=== PATIENT | male | born 1960 | race Caucasian/White ===

== ENCOUNTER 2016-09-13 07:15 | Emergency (ER) | payer OTHER ==
--- NOTE | 2016-09-13 08:01 | XR ---
EXAMINATION TYPE: XR ankle complete LT DATE OF EXAM: 09/13/2016 7:54 AM CLINICAL HISTORY: Injury with pain TECHNIQUE: Frontal, lateral and oblique images of the left ankle are obtained. COMPARISON: None. FINDINGS: There is no acute fracture/dislocation evident in the left ankle. The ankle mortise appea rs within normal limits. The overlying soft tissue appears unremarkable. IMPRESSION: There is no acute fracture or dislocation in the left ankle.
--- NOTE | 2016-09-13 08:38 | XR ---
EXAMINATION TYPE: XR foot complete LT DATE OF EXAM: 09/13/2016 8:31 AM CLINICAL HISTORY: Left lateral foot pain after hockey injury. TECHNIQUE: Frontal, lateral, and oblique images of the left foot are obtained. COMPARISON: None FINDINGS: There is no acute fracture/dislocation evident in the left foot. There is mild spurring an d joint space loss first metatarsophalangeal joint. The overlying soft tissue appears unremarkable. IMPRESSION: There is no acute fracture or dislocation in the left foot.
--- NOTE | 2016-09-13 08:57 | ED ---
General Adult HPI - General Chief complaint: Extremity Injury, Lower Stated complaint: left ankle injury Time Seen by Provider: 09/13/16 08:11 Source: patient, RN notes reviewed Mode of arrival: wheelchair Limitations: no limitations - History of Present Illness Initial comments: Patient is a 56-year-old male who presents emergency room today with a chief complaint of an injury to the left foot that occurred yesterday while playing hockey. He states he took a hockey put to the inside of the left foot. He does admit to point tenderness over the medial aspect of the left foot. States hurts with dorsiflexion. He denies any other complaints or associated symptoms. Patient denies any recent fever, chills, shortness of breath, chest pain, back pain, abdominal pain, nausea or vomiting, numbness or tingling, dysuria or hematuria, constipation or diarrhea, headaches or visual changes, or any other complaints. - Related Data Previous Rx's Medication Instructions Recorded Ibuprofen [Motrin] 600 mg PO Q6HR PRN #20 day 09/13/16 Allergies Allergy/AdvReac Type Severity Reaction Status Date / Time venom-honey bee Allergy Rash/Hives Verified 09/13/16 07:28 [bee venom (honey bee)] Review of Systems ROS Statement: Those systems with pertinent positive or pertinent negative responses have been documented in the HPI. ROS Other: All systems not noted in ROS Statement are negative. Past Medical History Past Medical History: No Reported History History of Any Multi-Drug Resistant Organisms: None Reported Past Surgical History: Orthopedic Surgery Additional Past Surgical History / Comment(s): RT ACL REPAIR. COLONOSCOPY Past Anesthesia/Blood Transfusion Reactions: No Reported Reaction Past Psychological History: No Psychological Hx Reported Smoking Status: Never smoker Past Alcohol Use History: Occasional Past Drug Use History: None Reported - Past Family History Father Family Medical History: AFIB, AICD/Pacemaker Additional Family Medical History / Comment(s): got pacemaker at about age 81. Mother Family Medical History: Diabetes Mellitus Additional Family Medical History / Comment(s): Type 2 Diabetes General Exam - General Exam Comments Initial Comments: General: The patient is awake and alert, in no distress, and does not appear acutely ill. Neck: The neck is supple, there is no tenderness or JVD. Cardiovascular: There is a regular rate and rhythm. No murmur, rub or gallop is appreciated. Respiratory: Lungs are clear to auscultation, respirations are non-labored, breath sounds are equal. No wheezes, stridor, rales, or rhonchi. Musculoskeletal: Patient has normal appearance of left foot mild swelling. Shows good range of motion with plantar and dorsiflexion. Sensations are intact pulses equal bilaterally 2+. Strength is 5/5. No tenderness over the lateral medial malleolus. No tenderness to left knee. No tenderness down into the metatarsals. Patient mildly tender mid foot on the medial aspect. Neurological: A&O x 3. CN II-XII intact, There are no obvious motor or sensory deficits. Coordination appears grossly intact. Speech is normal. Skin: Skin is warm and dry and no rashes or lesions are noted. Psychiatric: Normal mood and affect. Limitations: no limitations Course Vital Signs 09/13/16 07:23 Temperature 98.0 F Pulse Rate 90 Respiratory 16 Rate Blood Pressure 137/87 O2 Sat by Pulse 98 Oximetry Medical Decision Making - Medical Decision Making She was reviewed unremarkable. Patient denies follow-up the family doctor or orthopedics next 7-10 days for repeat x-rays if symptoms persist. Patient advised to ice elevate and use ibuprofen for pain. Disposition Clinical Impression: Foot contusion Disposition: HOME SELF-CARE Condition: Good Instructions: Foot Contusion (ED) Additional Instructions: Please use ibuprofen for pain. Please continue to ice elevate the affected area at least 4 times daily for 20 minutes at a time. Please follow-up the family doctor or orthopedics in the next 7-10 days for repeat x-rays if symptoms persist. Please return to emergency room if the symptoms increase or worsen or for any other concerns. Prescriptions: Ibuprofen [Motrin] 600 mg PO Q6HR PRN #20 day PRN Reason: Pain Referrals: Matthew Hermosillo DO [Primary Care Provider] - 1-2 days Fredrick Archer MD [STAFF PHYSICIAN] - 1-2 days Time of Disposition: 08:57
[2016-09-13 09:05] VITALS: BP 134/78; PULSE 77; RESP 18; TEMP 97.6
== END 2016-09-13 09:06 | disposition home or self-care (01) ==
LOC: EC 07:15
DX: S90.32XA Contusion of left foot, initial encounter (principal); W21.220A Struck by ice hockey puck, initial encounter; Y93.22 Activity, ice hockey
CPT/HCPCS: 99283

== ENCOUNTER 2018-07-22 14:47 | Observation (INO) | payer BC, OTHER ==
--- NOTE | 2018-07-22 15:25 | ED ---
General Adult HPI - General Chief complaint: Chest Pain Stated complaint: wants blood work done for cardiac enzymes Time Seen by Provider: 07/22/18 15:03 Source: patient, RN notes reviewed Mode of arrival: wheelchair Limitations: no limitations - History of Present Illness Initial comments: This a 57-year-old male presents emergency Department complaining of chest pain last evening. Patient states was severe and it radiated to his back. Patient states it lasted about 10 minutes she was a little lightheaded with it and he was also very diaphoretic with it. Patient states the pain resolved and once it resolved he laid back down and try to go to sleep. Patient states he has no high blood pressure history no diabetes no family history but he does state his cholesterol is borderline. Patient denies any recent fever chills or cough. Patient denies any chest pain today but he does state he has some chest tightness. Patient denies any abdominal pain patient denies nausea vomiting diarrhea. Patient denies any edema in the legs or calf tenderness. - Related Data Previous Rx's Medication Instructions Recorded Famotidine [Pepcid] 20 mg PO BID #30 tablet 07/23/18 Allergies Allergy/AdvReac Type Severity Reaction Status Date / Time venom-honey bee Allergy Rash/Hives Verified 07/22/18 15:34 [bee venom (honey bee)] Review of Systems ROS Statement: Those systems with pertinent positive or pertinent negative responses have been documented in the HPI. ROS Other: All systems not noted in ROS Statement are negative. Past Medical History Past Medical History: No Reported History History of Any Multi-Drug Resistant Organisms: None Reported Past Surgical History: Orthopedic Surgery Additional Past Surgical History / Comment(s): RT ACL REPAIR. COLONOSCOPY Past Anesthesia/Blood Transfusion Reactions: No Reported Reaction Past Psychological History: No Psychological Hx Reported Smoking Status: Never smoker Past Alcohol Use History: Occasional Past Drug Use History: None Reported - Past Family History Father Family Medical History: AFIB, AICD/Pacemaker Additional Family Medical History / Comment(s): got pacemaker at about age 81. Mother Family Medical History: Diabetes Mellitus Additional Family Medical History / Comment(s): Type 2 Diabetes General Exam - General Exam Comments Initial Comments: GENERAL: Patient is well-developed and well-nourished. Patient is nontoxic and well- hydrated and is in no acute distress. ENT: Neck is soft and supple. No significant lymphadenopathy is noted. Oropharynx is clear. Moist mucous membranes. Neck has full range of motion without eliciting any pain. EYES: The sclera were anicteric and conjunctiva were pink and moist. Extraocular movements were intact and pupils were equal round and reactive to light. Eyelids were unremarkable. PULMONARY: Unlabored respirations. Good breath sounds bilaterally. No audible rales rhonchi or wheezing was noted. CARDIOVASCULAR: There is a regular rate and rhythm without any murmurs gallops or rubs. ABDOMEN: Soft and nontender with normal bowel sounds. No palpable organomegaly was noted. There is no palpable pulsatile mass. SKIN: Skin is clear with no lesions or rashes and otherwise unremarkable. NEUROLOGIC: Patient is alert and oriented x3. Cranial nerves II through XII are grossly intact. Motor and sensory are also intact. Normal speech, volume and content. Symmetrical smile. MUSCULOSKELETAL: Normal extremities with adequate strength and full range of motion. No lower extremity swelling or edema. No calf tenderness. LYMPHATICS: No significant lymphadenopathy is noted PSYCHIATRIC: Normal psychiatric evaluation. Limitations: no limitations Course Vital Signs 07/22/18 07/22/18 07/22/18 14:57 15:23 15:30 Temperature 97.8 F Pulse Rate 72 73 69 Respiratory 20 22 8 L Rate Blood Pressure 175/92 142/105 O2 Sat by Pulse 98 98 97 Oximetry 07/22/18 07/22/18 07/22/18 16:00 16:30 17:00 Temperature Pulse Rate 72 66 Respiratory 11 L 9 L 16 Rate Blood Pressure 128/95 134/99 146/96 O2 Sat by Pulse 97 97 98 Oximetry 07/22/18 07/22/18 07/22/18 17:30 18:00 18:30 Temperature Pulse Rate 74 73 71 Respiratory 14 12 14 Rate Blood Pressure 155/93 146/95 137/95 O2 Sat by Pulse 97 98 98 Oximetry 07/22/18 07/22/18 07/22/18 19:00 19:45 21:10 Temperature 98.2 F Pulse Rate 74 75 84 Respiratory 20 16 16 Rate Blood Pressure 136/91 150/99 126/82 O2 Sat by Pulse 96 98 96 Oximetry 07/22/18 07/23/18 07/23/18 22:00 00:00 03:34 Temperature 97.5 F L Pulse Rate 83 70 74 Respiratory 18 10 L 14 Rate Blood Pressure 126/85 116/80 108/81 O2 Sat by Pulse 93 L 95 96 Oximetry 07/23/18 07/23/18 06:41 07:36 Temperature 97.5 F L 97.9 F Pulse Rate 84 87 Respiratory 16 18 Rate Blood Pressure 153/55 130/93 O2 Sat by Pulse 95 96 Oximetry Medical Decision Making - Medical Decision Making EKG shows a sinus rhythm with frequent PVCs at 72 bpm VA interval is on a 54 QRS is 94 Q-T intervals 42 QTC is 440. Patient's EKG shows no ST segment elevation or depression or T wave abnormalities are noted. Chest x-ray shows no acute abnormality. Patient was chest pain-free. I spoke with Dr. Carline Crowley agreed to admit the patient admitted the patient I wrote admitting orders. - Lab Data Result diagrams: 07/22/18 15:20 07/22/18 15:20 Lab Results 07/22/18 07/22/18 07/22/18 Range/Units 15:20 15:20 15:20 WBC 7.4 (3.8-10.6) k/uL RBC 5.66 (4.30-5.90) m/uL Hgb 16.6 (13.0-17.5) gm/dL Hct 49.5 (39.0-53.0) % MCV 87.6 (80.0-100.0) fL MCH 29.4 (25.0-35.0) pg MCHC 33.6 (31.0-37.0) g/dL RDW 13.0 (11.5-15.5) % Plt Count 179 (150-450) k/uL Neutrophils % 57 % Lymphocytes % 28 % Monocytes % 8 % Eosinophils % 4 % Basophils % 1 % Neutrophils # 4.2 (1.3-7.7) k/uL Lymphocytes # 2.1 (1.0-4.8) k/uL Monocytes # 0.6 (0-1.0) k/uL Eosinophils # 0.3 (0-0.7) k/uL Basophils # 0.0 (0-0.2) k/uL PT (9.0-12.0) sec INR (<1.2) APTT (22.0-30.0) sec Sodium 143 (137-145) mmol/L Potassium 4.5 (3.5-5.1) mmol/L Chloride 107 (98-107) mmol/L Carbon Dioxide 28 (22-30) mmol/L Anion Gap 8 mmol/L BUN 14 (9-20) mg/dL Creatinine 0.88 (0.66-1.25) mg/dL Est GFR (CKD-EPI)AfAm >90 (>60 ml/min/1.73 sqM) Est GFR (CKD-EPI)NonAf >90 (>60 ml/min/1.73 sqM) Glucose 97 (74-99) mg/dL Calcium 9.5 (8.4-10.2) mg/dL Magnesium 2.3 (1.6-2.3) mg/dL Total Bilirubin 0.5 (0.2-1.3) mg/dL AST 26 (17-59) U/L ALT 34 (21-72) U/L Alkaline Phosphatase 92 (38-126) U/L Total Creatine Kinase 59 (55-170) U/L CK-MB (CK-2) 1.4 (0.0-2.4) ng/mL CK-MB (CK-2) Rel Index 2.4 Troponin I <0.012 (0.000-0.034) ng/mL Total Protein 7.2 (6.3-8.2) g/dL Albumin 4.3 (3.5-5.0) g/dL 07/22/18 Range/Units 15:20 WBC (3.8-10.6) k/uL RBC (4.30-5.90) m/uL Hgb (13.0-17.5) gm/dL Hct (39.0-53.0) % MCV (80.0-100.0) fL MCH (25.0-35.0) pg MCHC (31.0-37.0) g/dL RDW (11.5-15.5) % Plt Count (150-450) k/uL Neutrophils % % Lymphocytes % % Monocytes % % Eosinophils % % Basophils % % Neutrophils # (1.3-7.7) k/uL Lymphocytes # (1.0-4.8) k/uL Monocytes # (0-1.0) k/uL Eosinophils # (0-0.7) k/uL Basophils # (0-0.2) k/uL PT 9.8 (9.0-12.0) sec INR 0.9 (<1.2) APTT 24.0 (22.0-30.0) sec Sodium (137-145) mmol/L Potassium (3.5-5.1) mmol/L Chloride (98-107) mmol/L Carbon Dioxide (22-30) mmol/L Anion Gap mmol/L BUN (9-20) mg/dL Creatinine (0.66-1.25) mg/dL Est GFR (CKD-EPI)AfAm (>60 ml/min/1.73 sqM) Est GFR (CKD-EPI)NonAf (>60 ml/min/1.73 sqM) Glucose (74-99) mg/dL Calcium (8.4-10.2) mg/dL Magnesium (1.6-2.3) mg/dL Total Bilirubin (0.2-1.3) mg/dL AST (17-59) U/L ALT (21-72) U/L Alkaline Phosphatase (38-126) U/L Total Creatine Kinase (55-170) U/L CK-MB (CK-2) (0.0-2.4) ng/mL CK-MB (CK-2) Rel Index Troponin I (0.000-0.034) ng/mL Total Protein (6.3-8.2) g/dL Albumin (3.5-5.0) g/dL Disposition Clinical Impression: Chest pain Disposition: ADMITTED IP TO THIS [facility] Time of Disposition: 17:15
[2018-07-22 15:36] LABS: Basophils % (A) 1 %; Eosinophils # (A) 0.3 k/uL (0-0.7); Eosinophils % (A) 4 %; HCT 49.5 % (39.0-53.0); HGB 16.6 gm/dL (13.0-17.5); Lymphocytes # (A) 2.1 k/uL (1.0-4.8); Lymphocytes % (A) 28 %; MCH 29.4 pg (25.0-35.0); MCHC 33.6 g/dL (31.0-37.0); MCV 87.6 fL (80.0-100.0); Mean Platelet Volume 7.5; Monocytes # (A) 0.6 k/uL (0-1.0); Monocytes % (A) 8 %; Neutrophils # (A) 4.2 k/uL (1.3-7.7); Neutrophils % (A) 57 %; Platelet Count 179 k/uL (150-450); RBC 5.66 m/uL (4.30-5.90); WBC 7.4 k/uL (3.8-10.6)
[2018-07-22 15:44] LABS: INR 0.9 (<1.2); Prothrombin Time 9.8 sec (9.0-12.0)
--- NOTE | 2018-07-22 15:47 | XR ---
EXAMINATION TYPE: XR chest 2V DATE OF EXAM: 07/22/2018 COMPARISON: Prior chest x-ray 01/27/2014 HISTORY: Chest pain TECHNIQUE: Frontal and lateral views of the chest are obtained. FINDINGS: There is no focal air space opacity, pleural effusion, or pneumothorax seen. The cardiac silhouette size is within normal limits. Multilevel thoracic spondylosis. Eventration of the hemidia phragms. The osseous structures are intact. There are overlying cardiac leads. IMPRESSION: No acute cardiopulmonary process.
[2018-07-22 15:48] LABS: ALT 34 U/L (21-72); AST 26 U/L (17-59); Albumin 4.3 g/dL (3.5-5.0); Alkaline Phosphatase 92 U/L (38-126); Anion Gap 8 mmol/L; Blood Urea Nitrogen 14 mg/dL (9-20); Calcium 9.5 mg/dL (8.4-10.2); Carbon Dioxide 28 mmol/L (22-30); Chloride 107 mmol/L (98-107); Glucose 97 mg/dL (74-99); Magnesium 2.3 mg/dL (1.6-2.3); Potassium 4.5 mmol/L (3.5-5.1); Sodium 143 mmol/L (137-145); Total Bilirubin 0.5 mg/dL (0.2-1.3); Total Protein 7.2 g/dL (6.3-8.2)
[2018-07-22 15:49] LABS: Creatine Kinase 59 U/L (55-170)
[2018-07-22 16:02] LABS: Creatine Kinase MB 1.4 ng/mL (0.0-2.4); Troponin I <0.012 ng/mL (0.000-0.034)
[2018-07-22] MEDS ORDERED: NITROGLYCERIN SL TABS 0.4 MG TAB SUBLINGUAL PRN (17:15)
[2018-07-22] MEDS: NITROGLYCERIN OINT 1 INCH/GM PACKET TOPICAL SCH (18:46)
[2018-07-22] MEDS ORDERED: ASPIRIN 81 MG PO STA (18:49)
[2018-07-22 21:36] LABS: Creatine Kinase 48 U/L (55-170)
[2018-07-22 21:48] LABS: Troponin I <0.012 ng/mL (0.000-0.034)
--- NOTE | 2018-07-23 00:40 | P.HPIM ---
History of Present Illness H&P Date: 07/22/18 Chief Complaint: Chest pain Patient is a 57-year-old male with a known history of obstructive sleep apnea unable to use CPAP machine at home, history of migraine headaches came to ER with complaints of chest pain. Patient did have left retrosternal chest pain radiating to the back started around 11:30 PM last night. Pain lasted about 10 minutes. No radiation to the arm. He is assisted with difficulty of breathing and diaphoresis. No nausea or vomiting. Patient also felt a little lightheaded. Patient was told by his son to go to ER for further evaluation. Currently patient denied any complaints of chest pain or shortness of breath. Patient says that he had stress test about 3 years ago which was negative at the time. Patient states he has no high blood pressure history no diabetes no family history but he does state his cholesterol is borderline. Patient denies any recent fever chills or cough. Patient denies any chest pain today but he does state he has some chest tightness. Patient denies any abdominal pain patient denies nausea vomiting diarrhea. Patient denies any edema in the legs or calf tenderness. Patient says that he has been stressful situation recently. EKG showed sinus rhythm with PACs Chest x-ray showed no acute cardiopulmonary process. Troponin 1 negative. Review of Systems Constitutional: Patient denies any fever or chills . No generalized weakness or weight loss. Abdomen: Patient denied nausea vomiting and diarrhea and abdominal pain. Cardiovascular: Patient denies any chest pain or short of breath no palpitations. Respiratory: patient denied any cough is from production. No shortness of breath Neurologic: Patient denied any numbness or tingling headache. Musculoskeletal: Patient denies any complaints of joint swelling or deformity. Skin: Negative Psychiatric: Negative Endocrine: No heat or cold intolerance. No recent weight gain. Genitourinary: No dysuria or hematuria. All other 14 point ROS negative except the above Past Medical History Past Medical History: Chest Pain / Angina, Sleep Apnea/CPAP/BIPAP Additional Past Medical History / Comment(s): stress test 2013-neg,"boarderline cholesterol, shingles 1991, hx h-pylori 2009, past migraines,lars-unable to use cpap machine. erm/macular pucker scheduled for sx friday at [place]. pt stated he thinks he had a pne vaccine,qriter unable to verify at time of this admit.please call dr hutson in am to verify date. History of Any Multi-Drug Resistant Organisms: None Reported Past Surgical History: Orthopedic Surgery Additional Past Surgical History / Comment(s): RT ACL REPAIR"has cadaver acl", lasik eye sx melvin eyes. COLONOSCOPY/polypectomt-benign, egd, sx for anal fissure Past Anesthesia/Blood Transfusion Reactions: No Reported Reaction Smoking Status: Never smoker - Past Family History Father Family Medical History: AFIB, AICD/Pacemaker Additional Family Medical History / Comment(s): got pacemaker at about age 81. Mother Family Medical History: Diabetes Mellitus Additional Family Medical History / Comment(s): Type 2 Diabetes Medications and Allergies Allergies Allergy/AdvReac Type Severity Reaction Status Date / Time venom-honey bee Allergy Rash/Hives Verified 07/22/18 15:34 [bee venom (honey bee)] Physical Exam Vitals: Vital Signs Temp Pulse Resp BP Pulse Ox 07/22/18 21:10 98.2 F 84 16 126/82 96 07/22/18 19:45 75 16 150/99 98 07/22/18 19:00 74 20 136/91 96 07/22/18 18:30 71 14 137/95 98 07/22/18 18:00 73 12 146/95 98 07/22/18 17:30 74 14 155/93 97 07/22/18 17:00 16 146/96 98 07/22/18 16:30 66 9 L 134/99 97 07/22/18 16:00 72 11 L 128/95 97 07/22/18 15:30 69 8 L 142/105 97 07/22/18 15:23 73 22 98 07/22/18 14:57 97.8 F 72 20 175/92 98 Intake and Output 07/22/18 07/22/18 07/23/18 14:59 22:59 06:59 Other: Weight 103.873 kg PHYSICAL EXAMINATION: Patient is lying in the bed comfortably, no acute distress, awake alert and oriented.. HEENT: Normocephalic. Neck is supple. Pupils reactive. Nostrils clear. Oral cavity is moist. Ears reveal no drainage. Neck reveals no JVD, carotid bruits, or thyromegaly. CHEST EXAMINATION: Trachea is central. Symmetrical expansion. Lung shin clear to auscultation and percussion. CARDIAC: Normal S1, S2 with no gallops. No murmurs ABDOMEN: Soft. Bowel sounds normal. No organomegaly. No abdominal bruits. Extremities: reveal no edema. No clubbing or cyanosis Neurologically awake, alert, oriented x3 with well-coordinated movements. No focal deficits noted Skin: No rash or skin lesions. Psychiatric: Coperative. Nonsuicidal Musculoskeletal: No joint swelling or deformity. Normal range of motion. Results CBC & Chem 7: 07/22/18 15:20 07/22/18 15:20 Labs: Abnormal Lab Results - Last 24 Hours (Table) 07/22/18 Range/Units 21:10 Total Creatine Kinase 48 L (55-170) U/L Thrombosis Risk Factor Assmnt - DVT/VTE Prophylaxis DVT/VTE Prophylaxis: Pharmacologic Prophylaxis ordered Assessment and Plan Assessment: Atypical chest pain. Rule out acute coronary syndrome. Obstructive sleep apnea. Not on CPAP machine at home History of migraine headaches History of H. pylori infection in 2009 Macular pucker scheduled surgery on Friday at [facility] DVT prophylaxis Plan: Patient will be continued on telemetry monitoring. Serial EKGs and troponins. Cardiology was consulted for further evaluation. Currently patient denied any complaints of chest pain or shortness of breath. Further recommendations based on the clinical course. Continue with aspirin. Lipid panel was ordered.
[2018-07-23 04:35] LABS: Cholesterol 189 mg/dL (<200); HDL Cholesterol 57 mg/dL (40-60); LDL Cholesterol,Calculated 89 mg/dL (0-99); Triglycerides 214 mg/dL (<150)
[2018-07-23 04:45] LABS: Creatine Kinase 40 U/L (55-170)
[2018-07-23 04:59] LABS: Creatine Kinase MB 0.7 ng/mL (0.0-2.4); Troponin I <0.012 ng/mL (0.000-0.034)
[2018-07-23] MEDS: NITROGLYCERIN OINT 1 INCH/GM PACKET TOPICAL SCH (06:40)
[2018-07-23 07:37] VITALS: RESP 18
--- NOTE | 2018-07-23 08:03 | CONS ---
CONSULTATION Mr. Cordova is a 57-year-old male with no prior documented history of coronary artery disease who presented to the emergency room with symptoms of chest discomfort. The discomfort occurred the night before last, woke him up from sleep, pressure like in the chest. He felt sweaty with it and lasted for about 10 minutes. His was quite concerned about it, but he elected not to come to the hospital because his was having a cardiac catheterization yesterday. Subsequently, he had no further symptoms, but yesterday because of the event on the insistence of his and his family, he came into the emergency room and subsequently was admitted. He is doing well at the time my evaluation. He has no chest discomfort. His breathing is stable. He has no dizziness, palpitation, or syncope. No PND, orthopnea, or peripheral edema. He is active physically, plays hockey once a week without any difficulty. He has no prior cardiac history. His coronary risk factors are negative for hypertension or diabetes. He has had borderline hyperlipidemia. He is a nonsmoker. MEDICATION: His medications at home are none. PHYSICAL EXAMINATION: He is a 57-year-old male, alert, oriented, in no apparent distress. Blood pressure 130/90 with the heart rate in the 80s. HEAD: Normocephalic. EYES: Sclerae anicteric. NECK: Good carotid upstroke. No bruit. No jugular venous distention. LUNGS: Clear to auscultation. HEART: Regular rate and rhythm. S1, S2. No S3. No S4. No murmur or rub. ABDOMEN: Soft, nontender. Positive bowel sounds. No organomegaly. EXTREMITIES: No edema. Intact distal pulses. LAB DATA: Lab data revealed troponin less than 0.012. BUN and creatinine 14 and 0.88. Potassium 4.5. Cholesterol 189, LDL of 89. Hemoglobin of 16.6. EKG revealed a sinus mechanism normal axis and intervals with occasional PVCs. Chest x-ray shows no acute infiltrate. IMPRESSION: 1. Chest discomfort of unclear etiology has some atypical features for ischemic heart disease in a patient with no significant risk factors. 2. Ventricular ectopic activity on the monitor and on the EKG, asymptomatic. RECOMMENDATION: I have recommended to proceed with a stress echocardiogram and a transthoracic echo and depending on those findings, further recommendation will be made. Thank you for this consult. We will follow with you. MMODL / IJN: [id number] /
[2018-07-23] MEDS ORDERED: ASPIRIN 325 MG TAB PO SCH (09:00)
[2018-07-23] MEDS: HEPARIN SODIUM,PORCINE 5,000 UNIT/ML 1 ML VIAL SQ SCH ×2 (09:16→17:08)
--- NOTE | 2018-07-23 11:28 | ECHOF ---
Referral Reason: MEASUREMENTS -------- HEIGHT: 188.0 cm WEIGHT: 106.6 kg BP: RVIDd: 2.7 cm (< 3.3) IVSd: 1.3 cm (0.6 - 1.1) LVIDd: 4.8 cm (3.9 - 5.3) LVPWd: 1.3 cm (0.6 - 1.1) IVSs: 1.5 cm LVIDs: 3.7 cm LVPWs: 1.5 cm LA Diam: 3.4 cm (2.7 - 3.8) LAESV Index (A-L): 13.16 ml/m Ao Diam: 3.5 cm (2.0 - 3.7) AV Cusp: 1.8 cm (1.5 - 2.6) LA Diam: 3.6 cm (2.7 - 3.8) MV EXCURSION: 23.601 mm (> 18.000) MV EF SLOPE: 121 mm/s (70 - 150) EPSS: 0.5 cm MV E Damon: 0.57 m/s MV DecT: 248 ms MV A Damon: 0.68 m/s MV E/A Ratio: 0.84 RAP: 5.00 mmHg RVSP: 25.10 mmHg FINDINGS -------- Sinus rhythm. This was a technically adequate study. The left ventricular size is normal. There is mild concentric left ventricular hypertrophy. Overa ll left ventricular systolic function is normal with, an EF between 55 - 60 %. The right ventricle is normal in size. The left atrial size is normal. The right atrial size is normal. The aortic valve is trileaflet and appears structurally normal. There is mild aortic regurgitation. The mitral valve is normal. Mild mitral regurgitation is present. Mild tricuspid regurgitation present. Right ventricular systolic pressure is normal at < 35 mmHg. The right ventricular systolic pressure, as measured by Doppler, is 25.10mmHg. The pulmonic valve was not well visualized. There is no pulmonic regurgitation present. The aortic root size is normal. There is no pericardial effusion. CONCLUSIONS -------- 1. Sinus rhythm. 2. The left ventricular size is normal. 3. There is mild concentric left ventricular hypertrophy. 4. Overall left ventricular systolic function is normal with, an EF between 55 - 60 %. 5. The left atrial size is normal. 6. The aortic valve is trileaflet and appears structurally normal. 7. There is mild aortic regurgitation. 8. Mild mitral regurgitation is present. 9. Mild tricuspid regurgitation present. 10. Right ventricular systolic pressure is normal at < 35 mmHg. 11. The pulmonic valve was not well visualized. 12. There is no pulmonic regurgitation present. 13. The aortic root size is normal. 14. There is no pericardial effusion. INTERNATIONAL EXCHANGE COORDINATOR: Dory Shabazz RDCS
--- NOTE | 2018-07-23 13:27 | ECHOS ---
STRESS ECHOCARDIOGRAM DATE OF SERVICE: 07/23/2018, INDICATIONS: Chest pain. MEDICATIONS: BASELINE HEART RATE: 71 BASELINE BLOOD PRESSURE: 148/97 MAXIMUM HEART RATE: 156 MAXIMUM BLOOD PRESSURE: 217/84 85% MPHR: 138 100% MPHR: 162 METS: 10.3 MAXIMUM STAGE REACHED: III TOTAL EXERCISE TIME: 9 minutes CLINICAL INFORMATION: Baseline rhythm is sinus mechanism, rate 71, normal axis and intervals, occasional PVCs. Baseline blood pressure 148/97 mmHg. Patient exercised on Rolan protocol for 9 minutes reach peak rate at 156 beats per minute which is equal to 96% maximum predicted heart rate. Peak blood pressure 217/84 mmHg. Test was terminated secondary to fatigue. There was no chest pain. Electrocardiograph monitoring revealed occasional PVCs with rare couplets. There was no evidence of diagnostic ischemic ST deviation. Baseline echocardiogram revealed normal wall thickness and motion. At peak exercise, there was normal wall motion augmentation with no hypokinesis or dyskinesis. CONCLUSION: 1. Good exercise tolerance with normal electrocardiograph response to exercise with occasional PVCs. 2. Normal stress echocardiogram with no evidence of stress induced ischemia. MMODL / IJN: [id number] /
[2018-07-23 15:27] VITALS: BP 124/83; PULSE 77; TEMP 98
--- NOTE | 2018-07-23 23:32 | DS ---
DISCHARGE SUMMARY DATE OF ADMISSION: 07/23/2018. DATE OF DISCHARGE: 07/23/2018. FINAL DIAGNOSES: Anterior chest wall pain possibly viral pleurisy. HOSPITAL COURSE: This is a patient presented with a feeling of a heavy sensation in the chest, short of breath, perspiration, some worse with deep breath. There was no leg swelling. The patient's EKG and troponins were negative. Stress echocardiogram was negative. The patient today is feeling back to his normal self. The patient does occasionally get heartburn. There was no swelling. There is no tachycardia. No other evidence of PE. The patient is feeling back to his normal self. I did discuss with the patient and , possibly get EGD done as an outpatient. CONSULTATION: Dr. Chow from Cardiology. EXAMINATION: On examination afebrile. Pulse 77, respiratory 18, blood pressure 120/83, pulse ox 99% on room air. Lungs are clear. Cardiovascular: 1st and 2nd sounds normal. Stress echocardiogram negative. LDL 89. DISCHARGE MEDICATIONS: Pepcid 20 mg b.i.d. FOLLOWUP: Follow up with Dr. Chow in 3 weeks. Follow up with Dr. Hermosillo in 1 week. Follow up with Dr. Corona to get the EGD done as an outpatient. Care was discussed with the patient and . Questions were answered. Copy to Dr. Hermosillo. MMODL / IJN: [id number] /
== END 2018-07-23 17:23 | disposition home or self-care (01) ==
LOC: EC 14:47 → 1SOBS 17:15
PROVIDERS: ADMIT Hospitalist; ATTEND Hospitalist
DX: R07.2 Precordial pain (principal); R42 Dizziness and giddiness; R61 Generalized hyperhidrosis; R06.02 Shortness of breath; R12 Heartburn; G47.33 Obstructive sleep apnea (adult) (pediatric); G43.909 Migraine, unspecified, not intractable, without status migrainosus; Z86.010 Personal history of colon polyps; Z82.49 Family history of ischemic heart disease and other diseases of the circulatory system; Z83.3 Family history of diabetes mellitus; Z91.030 Bee allergy status; Z86.19 Personal history of other infectious and parasitic diseases
CPT/HCPCS: 96372; 99285; 36415; 94760; 93005 ×2; 93306; 93351; 80061; 80053; 82550 ×2; 82553 ×2; 83735; 84484 ×2; 85025; 85610; 85730; 71046; G0378 ×2; J1644

== ENCOUNTER 2020-04-01 19:10 | Emergency (ER) | payer BC ==
[2020-04-01 19:19] VITALS: RESP 16; TEMP 98.2
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
--- NOTE | 2020-04-01 20:11 | XR ---
EXAMINATION TYPE: XR hand complete bilateral DATE OF EXAM: 04/01/2020 COMPARISON: NONE HISTORY: Pain. Trauma. TECHNIQUE: 3 views each hand FINDINGS: There is variable hypertrophic spurring at the DIP joints of the fingers and thumb. There i s nondisplaced fracture mid shaft of the right second metacarpal. There is only a few millimeters of offset. There is no dislocation. 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 No evidence of inflammatory arthritis. Acute second metacarpal right side midshaft fracture. No fracture seen of the left hand.
[2020-04-01] MEDS ORDERED: LIDOCAINE 1% INJ 10MG/ML (20 ML MDV) SQ ONE (20:18)
--- NOTE | 2020-04-01 20:18 | XR ---
EXAMINATION TYPE: XR wrist complete RT DATE OF EXAM: 04/01/2020 COMPARISON: NONE HISTORY: Pain TECHNIQUE: 4 views FINDINGS: There is mid shaft fracture of the second metacarpal with almost 50% offset of the fragment s. There is normal alignment. There is nondisplaced longitudinal fracture of the first metacarpal sha ft. There is no dislocation. The carpal bones are intact. Intercarpal joint spaces are normal. Distal radius and ulna appear intact. IMPRESSION: Acute fractures of the first and second metacarpals as above.
--- NOTE | 2020-04-01 21:16 | XR ---
EXAMINATION TYPE: XR hand complete RT DATE OF EXAM: 04/01/2020 COMPARISON: NONE HISTORY: Post reduction TECHNIQUE: 3 views FINDINGS: There is mid shaft fracture of the second metacarpal with fairly good apposition and alignm ent of the fragments. There is hairline longitudinal fracture of the first metacarpal unchanged. Ther e is no dislocation. IMPRESSION: Fractures of the first and second metacarpals. No complicating process seen.
[2020-04-01 21:33] VITALS: BP 149/97; PULSE 89
== END 2020-04-01 21:33 | disposition home or self-care (01) ==
LOC: EC 19:10
DX: S62.244A Nondisplaced fracture of shaft of first metacarpal bone, right hand, initial encounter for closed fracture (principal); S62.350A Nondisplaced fracture of shaft of second metacarpal bone, right hand, initial encounter for closed fracture; Z91.030 Bee allergy status; W26.8XXA Contact with other sharp object(s), not elsewhere classified, initial encounter; Y93.89 Activity, other specified; Y92.89 Other specified places as the place of occurrence of the external cause
CPT/HCPCS: 99283 ×2; 29125; 73130 ×2; 73110; J2001

== ENCOUNTER 2020-04-07 11:29 | Day surgery (SDC) | payer BC ==
[2020-04-06 08:55] VITALS: BMI 27.5
[~2020-04-07 11:29] MED LIST: DEXAMETHASONE SOD PHOSPHATE 10 MG/ML 1 ML VIAL IV ONE; HYDROmorphone 0.5 MG/0.5 ML SYRINGE IVP PRN; LACTATED RINGERS 1,000 ML IV SCH; LIDOCAINE 1% (10MG/ML) FOR IV START INTRADERMA PRN; MIDAZOLAM 2 MG/2 ML VIAL IV PRN; ONDANSETRON 4 MG/2 ML VIAL IVP ONE; SODIUM BICARB 8.4% 10 ML VIAL (1 MEQ/ML) ONE
[2020-04-07] MEDS ORDERED: ONDANSETRON 4 MG/2 ML VIAL ONE (11:47)
[2020-04-07] MEDS ORDERED: LIDOCAINE 1% INJ 10MG/ML (20 ML MDV) ONE ×2 (12:21)
[2020-04-07] MEDS ORDERED: fentaNYL (PF) 50 MCG/ML 2 ML AMP ONE ×2 (12:21)
[2020-04-07] MEDS ORDERED: MIDAZOLAM 2 MG/2 ML VIAL ONE ×2 (12:21)
[2020-04-07] MEDS ORDERED: PROPOFOL 10 MG/ML 20 ML VIAL IV ONE ×2 (12:21)
[2020-04-07 14:01] VITALS: TEMP 98.2
[2020-04-07 14:12] VITALS: RESP 18
--- NOTE | 2020-04-07 14:54 | FL ---
EXAMINATION TYPE: FL guidance operating room, XR hand limited RT DATE OF EXAM: 04/07/2020 CLINICAL HISTORY: Right second metacarpal fracture TECHNIQUE: Fluoroscopy. COMPARISON: Right hand radiograph 04/01/2020 FINDINGS: Fluoroscopic guidance was provided during procedure for performing physician. A total of 1 minute 44 seconds of fluoroscopic time was utilized during the procedure and 2 spot images was acqu ired. Please see operative report for additional details. IMPRESSION: As Above.
[2020-04-07 15:03] VITALS: BP 135/80; PULSE 72
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
== END 2020-04-07 15:18 | disposition home or self-care (01) ==
LOC: OR 11:29
PROVIDERS: ATTEND Orthopaedic Surgery
DX: S62.321A Displaced fracture of shaft of second metacarpal bone, left hand, initial encounter for closed fracture (principal); S62.241A Displaced fracture of shaft of first metacarpal bone, right hand, initial encounter for closed fracture; W31.89XA Contact with other specified machinery, initial encounter; H40.9 Unspecified glaucoma; Z98.890 Other specified postprocedural states; Z83.3 Family history of diabetes mellitus; Z91.030 Bee allergy status; Z79.1 Long term (current) use of non-steroidal anti-inflammatories (NSAID)
CPT/HCPCS: 73120; 26615; C1713; J2250; J1100; J0690; J2405; J2001; J3010; J2704

== ENCOUNTER 2020-07-21 13:20 | Emergency (ER) | payer BC ==
[2020-07-21 13:30] VITALS: TEMP 99.9
[2020-07-21] MEDS ORDERED: ALBUTEROL HFA INHALER INHALATION STA (13:54)
[2020-07-21] MEDS ORDERED: ACETAMINOPHEN TAB 500 MG TAB PO STA (13:56)
--- NOTE | 2020-07-21 14:16 | ED ---
SOB HPI - General Chief Complaint: Shortness of Breath Stated Complaint: +Covid Time Seen by Provider: 07/21/20 13:40 Source: patient, RN notes reviewed Mode of arrival: ambulatory Limitations: no limitations - History of Present Illness Initial Comments: This is a 59-year-old male with no prior history of heart or lung disorders that he is aware of who had the onset on the first of this month with some difficulty breathing cough fevers chills sweats. 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 He has been on outpatient regimen given by his doctor but is getting worse not better. He does have shortness of breath and exertional dyspnea he still has fevers of approximately 101 and O2 T-max for him he states is 100.9. No overt chest pain no palpitations no other complaints or other modifying factors he was sent in after teleconference with his doctor today. MD Complaint: shortness of breath, cough - Related Data Home Medications Medication Instructions Recorded Confirmed Acetaminophen [Tylenol Extra 500 mg PO DIRECTED PRN 04/06/20 04/06/20 Strength] Ibuprofen [Motrin] 800 mg PO Q8H PRN 04/06/20 04/06/20 Sulfamethox-Tmp 800-160Mg [Bactrim 1 tab PO Q12HR 04/07/20 04/07/20 DS 800-160 mg] Allergies Allergy/AdvReac Type Severity Reaction Status Date / Time venom-honey bee Allergy Rash/Hives Verified 07/21/20 13:30 [bee venom (honey bee)] Review of Systems ROS Statement: Those systems with pertinent positive or pertinent negative responses have been documented in the HPI. ROS Other: All systems not noted in ROS Statement are negative. Past Medical History Past Medical History: Chest Pain / Angina, Eye Disorder, GERD/Reflux, Skin Disorder Additional Past Medical History / Comment(s): "boarderline cholesterol", shingles 1991, hx h-pylori/ulcer 2009, past migraines, "extra heart beat", fx rt hand 04/01/20 with laceration-has cast on, hx staph infection hand 09/2019, rt eye "pre glaucoma" History of Any Multi-Drug Resistant Organisms: None Reported Past Surgical History: Orthopedic Surgery, Tonsillectomy Additional Past Surgical History / Comment(s): RT ACL REPAIR rt knee, COLONOSCOPY, left retinal surgery, left cataract removed with lens implant and micro stent implant for glaucoma Past Anesthesia/Blood Transfusion Reactions: No Reported Reaction Past Psychological History: No Psychological Hx Reported Smoking Status: Never smoker Past Alcohol Use History: None Reported Past Drug Use History: None Reported - Past Family History Father Family Medical History: Cancer Additional Family Medical History / Comment(s): prostate Mother Family Medical History: Diabetes Mellitus Additional Family Medical History / Comment(s): Type 2 Diabetes General Exam - General Exam Comments Initial Comments: This is a well-developed well-nourished awake alert oriented 3 male Limitations: no limitations General appearance: alert, in no apparent distress Head exam: Present: atraumatic, normocephalic, normal inspection Eye exam: Present: normal appearance, PERRL, EOMI. Absent: scleral icterus, conjunctival injection, periorbital swelling ENT exam: Present: normal exam, mucous membranes moist Neck exam: Present: normal inspection. Absent: tenderness, meningismus, lymphadenopathy Respiratory exam: Present: rales, decreased breath sounds. Absent: respiratory distress, wheezes, rhonchi, stridor Cardiovascular Exam: Present: regular rate, normal rhythm, normal heart sounds. Absent: systolic murmur, diastolic murmur, rubs, gallop, clicks GI/Abdominal exam: Present: soft, normal bowel sounds. Absent: distended, tenderness, guarding, rebound, rigid Extremities exam: Present: normal inspection, full ROM, normal capillary refill. Absent: tenderness, pedal edema, joint swelling, calf tenderness Back exam: Present: normal inspection Neurological exam: Present: alert, oriented X3, CN II-XII intact Psychiatric exam: Present: normal affect, normal mood Skin exam: Present: warm, dry, intact, normal color. Absent: rash Course Vital Signs 07/21/20 07/21/20 07/21/20 13:27 16:34 17:33 Temperature 99.9 F H Pulse Rate 93 Respiratory 20 Rate Blood Pressure 146/98 O2 Sat by Pulse 93 L 96 94 L Oximetry Medical Decision Making - Medical Decision Making I did discuss the findings with the patient also with Dr. Hermosillo. Patient is maintaining mid 90s saturations without oxygen supplementation. He did feel that her after the albuterol inhaler. She'll be discharged home on the current cocktail for SARS Covid 19 which includes vitamin C, vitamin D3, zinc, melatonin, Pepcid in addition to the inhaler and adequate fluids. Dr. Hermosillo is on-call during the weekend today being Friday patient will follow up otherwise By telemedicine - Lab Data Result diagrams: 07/21/20 14:10 07/21/20 14:10 Lab Results 07/21/20 07/21/20 07/21/20 Range/Units 14:10 14:10 14:10 WBC (3.8-10.6) k/uL RBC (4.30-5.90) m/uL Hgb (13.0-17.5) gm/dL Hct (39.0-53.0) % MCV (80.0-100.0) fL MCH (25.0-35.0) pg MCHC (31.0-37.0) g/dL RDW (11.5-15.5) % Plt Count (150-450) k/uL MPV Neutrophils % % Lymphocytes % % Monocytes % % Eosinophils % % Basophils % % Neutrophils # (1.3-7.7) k/uL Lymphocytes # (1.0-4.8) k/uL Monocytes # (0-1.0) k/uL Eosinophils # (0-0.7) k/uL Basophils # (0-0.2) k/uL PT 9.6 (9.0-12.0) sec INR 0.9 (<1.2) APTT 26.5 (22.0-30.0) sec D-Dimer 0.80 H (<0.60) mg/L FEU Sodium 136 L (137-145) mmol/L Potassium 4.2 (3.5-5.1) mmol/L Chloride 101 (98-107) mmol/L Carbon Dioxide 29 (22-30) mmol/L Anion Gap 6 mmol/L BUN 14 (9-20) mg/dL Creatinine 0.75 (0.66-1.25) mg/dL Est GFR (CKD-EPI)AfAm >90 (>60 ml/min/1.73 sqM) Est GFR (CKD-EPI)NonAf >90 (>60 ml/min/1.73 sqM) Glucose 108 H (74-99) mg/dL Plasma Lactic Acid Emmett (0.7-2.0) mmol/L Calcium 8.9 (8.4-10.2) mg/dL Magnesium 2.0 (1.6-2.3) mg/dL Total Bilirubin 0.7 (0.2-1.3) mg/dL AST 38 (17-59) U/L ALT 34 (4-49) U/L Alkaline Phosphatase 72 (38-126) U/L Lactate Dehydrogenase 851 H (313-618) U/L Creatine Kinase 37 L (55-170) U/L Troponin I <0.012 (0.000-0.034) ng/mL C-Reactive Protein 230.6 H (<10.0) mg/L NT-Pro-B Natriuret Pep pg/mL Total Protein 6.6 (6.3-8.2) g/dL Albumin 3.7 (3.5-5.0) g/dL 07/21/20 07/21/20 07/21/20 Range/Units 14:10 14:10 14:10 WBC 12.1 H (3.8-10.6) k/uL RBC 5.26 (4.30-5.90) m/uL Hgb 16.1 (13.0-17.5) gm/dL Hct 45.7 (39.0-53.0) % MCV 86.8 (80.0-100.0) fL MCH 30.6 (25.0-35.0) pg MCHC 35.2 (31.0-37.0) g/dL RDW 12.8 (11.5-15.5) % Plt Count 169 (150-450) k/uL MPV 8.4 Neutrophils % 89 % Lymphocytes % 5 % Monocytes % 5 % Eosinophils % 0 % Basophils % 1 % Neutrophils # 10.7 H (1.3-7.7) k/uL Lymphocytes # 0.6 L (1.0-4.8) k/uL Monocytes # 0.5 (0-1.0) k/uL Eosinophils # 0.0 (0-0.7) k/uL Basophils # 0.2 (0-0.2) k/uL PT (9.0-12.0) sec INR (<1.2) APTT (22.0-30.0) sec D-Dimer (<0.60) mg/L FEU Sodium (137-145) mmol/L Potassium (3.5-5.1) mmol/L Chloride (98-107) mmol/L Carbon Dioxide (22-30) mmol/L Anion Gap mmol/L BUN (9-20) mg/dL Creatinine (0.66-1.25) mg/dL Est GFR (CKD-EPI)AfAm (>60 ml/min/1.73 sqM) Est GFR (CKD-EPI)NonAf (>60 ml/min/1.73 sqM) Glucose (74-99) mg/dL Plasma Lactic Acid Emmett 1.2 (0.7-2.0) mmol/L Calcium (8.4-10.2) mg/dL Magnesium (1.6-2.3) mg/dL Total Bilirubin (0.2-1.3) mg/dL AST (17-59) U/L ALT (4-49) U/L Alkaline Phosphatase (38-126) U/L Lactate Dehydrogenase (313-618) U/L Creatine Kinase (55-170) U/L Troponin I (0.000-0.034) ng/mL C-Reactive Protein (<10.0) mg/L NT-Pro-B Natriuret Pep 186 pg/mL Total Protein (6.3-8.2) g/dL Albumin (3.5-5.0) g/dL - EKG Data -: EKG Interpreted by Me EKG shows normal: sinus rhythm EKG Comments: Sinus rhythm of 88. Ago 140 QRS duration 82 QT since QTC 342/413 minimal voltage criteria for LVH - Radiology Data Radiology results: report reviewed (I did review the imaging and report evidence of bilateral patchy infiltrates consistent with viral pneumonia patient will be report), image reviewed Disposition Clinical Impression: Viral pneumonia, COVID-19, Febrile illness, acute, Elevated d-dimer, Bronchospasm, acute Disposition: HOME SELF-CARE Condition: Good Instructions (If sedation given, give patient instructions): Viral Pneumonia (ED), Bronchospasm (ED), Fever in Adults (ED) Is patient prescribed a controlled substance at d/c from ED?: No Referrals: Matthew Hermosillo DO [Primary Care Provider] - 1-2 days
--- NOTE | 2020-07-21 14:22 | XR ---
EXAMINATION TYPE: XR chest 2V DATE OF EXAM: 07/21/2020 COMPARISON: Chest x-ray July 21, 2020 HISTORY: Covid positive. Fever and MALIKA. TECHNIQUE: Frontal and lateral views of the chest are obtained. FINDINGS: There are new patchy opacities in the periphery of the lung bases and periphery of the rig ht midlung. No pleural effusion or pneumothorax seen bilaterally. The cardiac silhouette size remain s within normal limits. Overlying EKG leads redemonstrated. Multilevel spurring in the spine. IMPRESSION: New multifocal peripheral acute infiltrates consistent with covid-19 infection.
[2020-07-21 14:30] LABS: Basophils # (A) 0.2 k/uL (0-0.2); Basophils % (A) 1 %; Eosinophils % (A) 0 %; HCT 45.7 % (39.0-53.0); HGB 16.1 gm/dL (13.0-17.5); Lymphocytes # (A) 0.6 k/uL (1.0-4.8); Lymphocytes % (A) 5 %; MCH 30.6 pg (25.0-35.0); MCHC 35.2 g/dL (31.0-37.0); MCV 86.8 fL (80.0-100.0); Mean Platelet Volume 8.4; Monocytes # (A) 0.5 k/uL (0-1.0); Monocytes % (A) 5 %; Neutrophils # (A) 10.7 k/uL (1.3-7.7); Neutrophils % (A) 89 %; Platelet Count 169 k/uL (150-450); RBC 5.26 m/uL (4.30-5.90); RDW 12.8 % (11.5-15.5); WBC 12.1 k/uL (3.8-10.6)
[2020-07-21 14:43] LABS: ALT 34 U/L (4-49); AST 38 U/L (17-59); African American GFR (CKD) >90 (>60 ml/min/1.73 sqM); Albumin 3.7 g/dL (3.5-5.0); Alkaline Phosphatase 72 U/L (38-126); Anion Gap 6 mmol/L; Blood Urea Nitrogen 14 mg/dL (9-20); Calcium 8.9 mg/dL (8.4-10.2); Carbon Dioxide 29 mmol/L (22-30); Chloride 101 mmol/L (98-107); Creatine Kinase 37 U/L (55-170); Glucose 108 mg/dL (74-99); LDH 851 U/L (313-618); Non-African American GFR(CKD) >90 (>60 ml/min/1.73 sqM); Potassium 4.2 mmol/L (3.5-5.1); Sodium 136 mmol/L (137-145); Total Bilirubin 0.7 mg/dL (0.2-1.3); Total Protein 6.6 g/dL (6.3-8.2)
[2020-07-21 14:46] LABS: INR 0.9 (<1.2); Partial Thromboplastin Time 26.5 sec (22.0-30.0); Prothrombin Time 9.6 sec (9.0-12.0)
[2020-07-21 14:55] LABS: D-Dimer 0.8 mg/L FEU (<0.60)
[2020-07-21 15:05] LABS: C Reactive Protein 230.6 mg/L (<10.0)
--- NOTE | 2020-07-21 16:14 | CT ---
EXAMINATION TYPE: CT angio chest DATE OF EXAM: 07/21/2020 COMPARISON: Radiograph same day HISTORY: 59-year-old male Cough, difficulty breathing. + covid. TECHNIQUE: Contiguous axial scanning of the chest performed with IV Contrast, patient injected with 1 00 mL of Isovue 370. Coronal/sagittal MIP reconstructions performed. CT DLP: 537.4 mGycm Automated exposure control for dose reduction was used. FINDINGS: Heart normal size without pericardial effusion. No flattening of the interventricular septum or reflu x of contrast into the hepatic veins. Aorta normal caliber with conventional arch vessel branching anatomy. Borderline size subcarinal lymph node measuring up to 1.2 cm. Mildly enlarged right hilar lymph nodes measuring up to 1.7 cm. Satisfactory opacification of the pulmonary arterial system though with limitation due to breathing m otion. This limits many of the segmental and more distal arterial branches. No definite pulmonary emb olus. Patchy and confluent peripheral groundglass densities, right greater than left. Changes extend throug hout the right lung and and only at the left base. Calcified granuloma posterior left base. No pleura l effusion. Small hiatal hernia. Underlying hepatic steatosis. Bones: Mild to moderate degenerative disc disease. Anterior and plate spondylosis lower thoracic spin e. IMPRESSION: 1. BREATHING MOTION ARTIFACT. Many of the segmental and smaller arterial branches are very limited. N o definite pulmonary embolus. 2. Patchy and confluent peripheral groundglass densities throughout the right lung as well as at the left base. Findings can be in keeping with COVID pneumonia. 3. Some reactive right hilar lymphadenopathy measuring up to 1.7 cm.
[2020-07-21 18:07] VITALS: BP 135/98; PULSE 94; RESP 18
[2020-07-21 20:30] LABS: Ferritin 1447.7 ng/mL (22.0-322.0)
--- NOTE | 2020-07-21 20:46 | ED ---
Medical Decision Making - Medical Decision Making I did directly: Patient at home and notify him of the prescription waiting for him. I could run 6 mg. - Lab Data Result diagrams: 07/21/20 14:10 07/21/20 14:10 Lab Results 07/21/20 07/21/20 07/21/20 Range/Units 14:10 14:10 14:10 WBC (3.8-10.6) k/uL RBC (4.30-5.90) m/uL Hgb (13.0-17.5) gm/dL Hct (39.0-53.0) % MCV (80.0-100.0) fL MCH (25.0-35.0) pg MCHC (31.0-37.0) g/dL RDW (11.5-15.5) % Plt Count (150-450) k/uL MPV Neutrophils % % Lymphocytes % % Monocytes % % Eosinophils % % Basophils % % Neutrophils # (1.3-7.7) k/uL Lymphocytes # (1.0-4.8) k/uL Monocytes # (0-1.0) k/uL Eosinophils # (0-0.7) k/uL Basophils # (0-0.2) k/uL PT 9.6 (9.0-12.0) sec INR 0.9 (<1.2) APTT 26.5 (22.0-30.0) sec D-Dimer 0.80 H (<0.60) mg/L FEU Sodium 136 L (137-145) mmol/L Potassium 4.2 (3.5-5.1) mmol/L Chloride 101 (98-107) mmol/L Carbon Dioxide 29 (22-30) mmol/L Anion Gap 6 mmol/L BUN 14 (9-20) mg/dL Creatinine 0.75 (0.66-1.25) mg/dL Est GFR (CKD-EPI)AfAm >90 (>60 ml/min/1.73 sqM) Est GFR (CKD-EPI)NonAf >90 (>60 ml/min/1.73 sqM) Glucose 108 H (74-99) mg/dL Plasma Lactic Acid Emmett (0.7-2.0) mmol/L Calcium 8.9 (8.4-10.2) mg/dL Magnesium 2.0 (1.6-2.3) mg/dL Ferritin 1447.7 H (22.0-322.0) ng/mL Total Bilirubin 0.7 (0.2-1.3) mg/dL AST 38 (17-59) U/L ALT 34 (4-49) U/L Alkaline Phosphatase 72 (38-126) U/L Lactate Dehydrogenase 851 H (313-618) U/L Creatine Kinase 37 L (55-170) U/L Troponin I <0.012 (0.000-0.034) ng/mL C-Reactive Protein 230.6 H (<10.0) mg/L NT-Pro-B Natriuret Pep pg/mL Total Protein 6.6 (6.3-8.2) g/dL Albumin 3.7 (3.5-5.0) g/dL Procalcitonin (0.02-0.09) ng/mL 07/21/20 07/21/20 07/21/20 Range/Units 14:10 14:10 14:10 WBC 12.1 H (3.8-10.6) k/uL RBC 5.26 (4.30-5.90) m/uL Hgb 16.1 (13.0-17.5) gm/dL Hct 45.7 (39.0-53.0) % MCV 86.8 (80.0-100.0) fL MCH 30.6 (25.0-35.0) pg MCHC 35.2 (31.0-37.0) g/dL RDW 12.8 (11.5-15.5) % Plt Count 169 (150-450) k/uL MPV 8.4 Neutrophils % 89 % Lymphocytes % 5 % Monocytes % 5 % Eosinophils % 0 % Basophils % 1 % Neutrophils # 10.7 H (1.3-7.7) k/uL Lymphocytes # 0.6 L (1.0-4.8) k/uL Monocytes # 0.5 (0-1.0) k/uL Eosinophils # 0.0 (0-0.7) k/uL Basophils # 0.2 (0-0.2) k/uL PT (9.0-12.0) sec INR (<1.2) APTT (22.0-30.0) sec D-Dimer (<0.60) mg/L FEU Sodium (137-145) mmol/L Potassium (3.5-5.1) mmol/L Chloride (98-107) mmol/L Carbon Dioxide (22-30) mmol/L Anion Gap mmol/L BUN (9-20) mg/dL Creatinine (0.66-1.25) mg/dL Est GFR (CKD-EPI)AfAm (>60 ml/min/1.73 sqM) Est GFR (CKD-EPI)NonAf (>60 ml/min/1.73 sqM) Glucose (74-99) mg/dL Plasma Lactic Acid Emmett 1.2 (0.7-2.0) mmol/L Calcium (8.4-10.2) mg/dL Magnesium (1.6-2.3) mg/dL Ferritin (22.0-322.0) ng/mL Total Bilirubin (0.2-1.3) mg/dL AST (17-59) U/L ALT (4-49) U/L Alkaline Phosphatase (38-126) U/L Lactate Dehydrogenase (313-618) U/L Creatine Kinase (55-170) U/L Troponin I (0.000-0.034) ng/mL C-Reactive Protein (<10.0) mg/L NT-Pro-B Natriuret Pep 186 pg/mL Total Protein (6.3-8.2) g/dL Albumin (3.5-5.0) g/dL Procalcitonin (0.02-0.09) ng/mL 07/21/20 Range/Units 14:10 WBC (3.8-10.6) k/uL RBC (4.30-5.90) m/uL Hgb (13.0-17.5) gm/dL Hct (39.0-53.0) % MCV (80.0-100.0) fL MCH (25.0-35.0) pg MCHC (31.0-37.0) g/dL RDW (11.5-15.5) % Plt Count (150-450) k/uL MPV Neutrophils % % Lymphocytes % % Monocytes % % Eosinophils % % Basophils % % Neutrophils # (1.3-7.7) k/uL Lymphocytes # (1.0-4.8) k/uL Monocytes # (0-1.0) k/uL Eosinophils # (0-0.7) k/uL Basophils # (0-0.2) k/uL PT (9.0-12.0) sec INR (<1.2) APTT (22.0-30.0) sec D-Dimer (<0.60) mg/L FEU Sodium (137-145) mmol/L Potassium (3.5-5.1) mmol/L Chloride (98-107) mmol/L Carbon Dioxide (22-30) mmol/L Anion Gap mmol/L BUN (9-20) mg/dL Creatinine (0.66-1.25) mg/dL Est GFR (CKD-EPI)AfAm (>60 ml/min/1.73 sqM) Est GFR (CKD-EPI)NonAf (>60 ml/min/1.73 sqM) Glucose (74-99) mg/dL Plasma Lactic Acid Emmett (0.7-2.0) mmol/L Calcium (8.4-10.2) mg/dL Magnesium (1.6-2.3) mg/dL Ferritin (22.0-322.0) ng/mL Total Bilirubin (0.2-1.3) mg/dL AST (17-59) U/L ALT (4-49) U/L Alkaline Phosphatase (38-126) U/L Lactate Dehydrogenase (313-618) U/L Creatine Kinase (55-170) U/L Troponin I (0.000-0.034) ng/mL C-Reactive Protein (<10.0) mg/L NT-Pro-B Natriuret Pep pg/mL Total Protein (6.3-8.2) g/dL Albumin (3.5-5.0) g/dL Procalcitonin 0.16 H (0.02-0.09) ng/mL Disposition Clinical Impression: Viral pneumonia, COVID-19, Febrile illness, acute, Elevated d-dimer, Bronchospasm, acute Disposition: HOME SELF-CARE Condition: Good Instructions (If sedation given, give patient instructions): Viral Pneumonia (ED), Fever in Adults (ED), Bronchospasm (ED) Prescriptions: Dexamethasone Oral [Decadron Oral] 6 mg PO DAILY #7 vial Is patient prescribed a controlled substance at d/c from ED?: No Referrals: Matthew Hermosillo DO [Primary Care Provider] - 1-2 days
== END 2020-07-21 18:28 | disposition home or self-care (01) ==
LOC: EC 13:20
DX: U07.1 COVID-19 (principal); J12.89 Other viral pneumonia; R79.89 Other specified abnormal findings of blood chemistry; J98.01 Acute bronchospasm; Z91.030 Bee allergy status
CPT/HCPCS: 36415; 94640; 93005; 85379; 83880; 80053; 82728; 82550; 83605; 83615; 83735; 84484; 85025; 85610; 85730; 86140; 87040; 84145; 71046; 71275; 99285; Q9967

== ENCOUNTER 2022-01-16 07:52 | Day surgery (SDC) | payer BC ==
[2022-01-14 13:00] VITALS: BMI 28.7
[~2022-01-16 07:52] MED LIST changes: -DEXAMETHASONE SOD PHOSPHATE 10 MG/ML 1 ML VIAL IV ONE; -HYDROmorphone 0.5 MG/0.5 ML SYRINGE IVP PRN; -MIDAZOLAM 2 MG/2 ML VIAL IV PRN; -ONDANSETRON 4 MG/2 ML VIAL IVP ONE; -SODIUM BICARB 8.4% 10 ML VIAL (1 MEQ/ML) ONE
--- NOTE | 2022-01-16 08:39 | P.GSHP ---
History of Present Illness H&P Date: 01/16/22 CHIEF COMPLAINT: Colon screen HISTORY OF PRESENT ILLNESS: The patient is a 61-year-old male who presents for colon screen. Lower endoscopy was offered for further evaluation and management. PAST MEDICAL HISTORY: Please see list. PAST SURGICAL HISTORY: Please see list. MEDICATIONS: Please see list. ALLERGIES: Please see list. SOCIAL HISTORY: No illicit drug use FAMILY HISTORY: No reports of Crohn disease or ulcerative colitis. REVIEW OF ORGAN SYSTEMS: CONSTITUTIONAL: No reports of fevers or chills. PHYSICAL EXAM: VITAL SIGNS: Stable GENERAL: Well-developed pleasant in no acute distress. HEENT: No scleral icterus. Extraocular movements grossly intact. Moist buccal mucosa. NECK: Supple without lymphadenopathy. CHEST: Unlabored respirations. Equal bilateral excursions. CARDIOVASCULAR: Regular rate and rhythm. Distal 2+ pulses. ABDOMEN: Soft, nontender, nondistended. MUSCULOSKELETAL: No clubbing, cyanosis, or edema. ASSESSMENT: 1. Colon screen. PLAN: 1. Recommend proceeding with a lower endoscopy Past Medical History Past Medical History: Chest Pain / Angina, Eye Disorder, GERD/Reflux, Skin Disorder, Sleep Apnea/CPAP/BIPAP Additional Past Medical History / Comment(s): "Borderline cholesterol", hx Shingles 1991, hx H-Pylori/ulcer 2009, past migraines, "extra heart beat", right eye "pre glaucoma", no CPAP use. History of Any Multi-Drug Resistant Organisms: None Reported Past Surgical History: Orthopedic Surgery, Tonsillectomy Additional Past Surgical History / Comment(s): Right ACL repair, colonoscopies, left retinal surgery, bilateral cataract removal with lens implant and micro stent implant for glaucoma, right hand surgery, pins placed. Past Anesthesia/Blood Transfusion Reactions: No Reported Reaction Past Psychological History: No Psychological Hx Reported Smoking Status: Never smoker Past Alcohol Use History: Occasional Past Drug Use History: None Reported - Past Family History Father Family Medical History: Cancer Additional Family Medical History / Comment(s): Prostate cancer. Mother Family Medical History: Diabetes Mellitus Additional Family Medical History / Comment(s): Type 2 Diabetes Medications and Allergies Home Medications Medication Instructions Recorded Confirmed Type No Known Home Medications 01/14/22 01/16/22 History Allergies Allergy/AdvReac Type Severity Reaction Status Date / Time venom-honey bee Allergy Rash/Hives Verified 01/16/22 08:21 [bee venom (honey bee)] Surgical - Exam Vital Signs Temp Pulse Resp BP Pulse Ox 97. F L 90 16 160/90 98 01/16/22 08:13 01/16/22 08:13 01/16/22 08:13 01/16/22 08:13 01/16/22 08:13
[2022-01-16] MEDS ORDERED: PROPOFOL 10 MG/ML 20 ML VIAL IV ONE (08:41)
--- NOTE | 2022-01-16 09:14 | P.PCN ---
Date of Procedure: 01/16/22 Description of Procedure: PREOPERATIVE DIAGNOSIS: Colonoscopy screening. Family history colon cancer Personal history colon polyps POSTOPERATIVE DIAGNOSIS: Colonoscopy screening. Diverticulosis, scattered. OPERATION: Colonoscopy to the cecum, ileocecal valve and appendiceal orifice. SURGEON: Samanta Pennington MD. ANESTHESIA: MAC. INDICATIONS: The patient is a 61-year-old male who presents for colonoscopy screening. Last colonoscopy 5 years ago. Benefits and risks were described and informed consent was obtained. DESCRIPTION OF PROCEDURE: The patient had undergone Sutab prep. The patient had been brought into the operating room and laid in the left lateral decubitus position. After adequate intravenous sedation, the rectum was examined with 2% lidocaine jelly. No external hemorrhoids were encountered. Prostate was unremarkable. The rectal tone was within normal limits. No lesions were palpated in the rectal vault. An Olympus colonoscope was advanced until the cecum, ileocecal valve and appendiceal orifice were clearly viewed. Moderately redundant sigmoid colon was identified requiring abdominal wall pressure. The prep was excellent. Scattered diverticulosis was encountered. No colonic polyps were found. No evidence of focal colitis was found. Retroflexion of the scope demonstrated grade 1 internal hemorrhoids without active bleeding or inflammation. The colon was desufflated. The patient had tolerated the procedure well. Withdrawal time was over 6 minutes. FINDINGS: Aronchick preparation quality scale 1 (1-5) Internal hemorrhoids, grade 1 No external prolapsed hemorrhoids. No arteriovenous malformations. No adenomatous polyps. No focal colitis. Pandiverticulosis RECOMMENDATIONS: Lower endoscopy in 2026 Plan - Discharge Summary Discharge Rx Participant: No New Discharge Prescriptions: Continue No Known Home Medications Discharge Medication List No Known Home Medications 01/14/22 [History] Follow up Appointment(s)/Referral(s): Samanta Pennington MD [STAFF PHYSICIAN] - As Needed Patient Instructions/Handouts: Diverticulosis Diet (GEN), Diverticulosis (GEN) Activity/Diet/Wound Care/Special Instructions: Repeat colonoscopy in 5 years2026 Discharge Disposition: HOME SELF-CARE
[2022-01-16 10:01] VITALS: BP 138/83; PULSE 61; RESP 17
== END 2022-01-16 10:23 | disposition home or self-care (01) ==
LOC: ORWHC2ENDO 07:52
PROVIDERS: ATTEND Surgery Plastic and Reconstructive Surgery
DX: Z12.11 Encounter for screening for malignant neoplasm of colon (principal); K57.30 Diverticulosis of large intestine without perforation or abscess without bleeding; Z83.71 Family history of colonic polyps; K21.9 Gastro-esophageal reflux disease without esophagitis; G47.30 Sleep apnea, unspecified; Z83.3 Family history of diabetes mellitus; Z87.19 Personal history of other diseases of the digestive system; Z91.030 Bee allergy status; Z80.0 Family history of malignant neoplasm of digestive organs
CPT/HCPCS: J2704; G0121